=== PATIENT | female | born 1985 | race Caucasian/White ===

== ENCOUNTER 2022-04-26 10:05 | Day surgery (SDC) | payer OTHER, SELFPAY ==
[2022-04-19 20:35] VITALS: BMI 20.2
--- NOTE | 2022-04-25 10:29 | P.CONAN_ITS ---
Documented by User: Peace Roberts NP 04/25/22 10:30 HPI - Anesthesia Eval Consult details Narrative: 36yo F for Left Eye Muscle Inferior oblique PCP cleared [facility] Past Medical History Medical History Asthma Back pain delivery delivered Surgical History Surgical History (Updated 04/26/22 @ 14:23 by Reanna Tellez MD) H/O section No pertinent past surgical history Social History Social History Patient Tobacco Use Status: Never used Tobacco Use of substances other than those prescribed or required for medical reasons: No Are you DNR?: No Advance Directives: No Advance Directives Information Provided: Yes Advance Directives on File: No Recently lost weight without trying: No Nutrition Risks: No Nutritional Risk Patient : No Meds Allergies Allergy/AdvReac Type Severity Reaction Status Date / Time ciprofloxacin Allergy Muscle Pain Verified 04/25/22 09:33 minocycline Allergy Unknown Verified 04/25/22 09:33 Home Medications Medication Instructions Recorded Confirmed Last Taken Type albuterol sulfate 90 mcg/actuation 2 puff inhalation QID PRN 04/19/22 04/26/22 04/26/22 History aerosol inhaler Shortness Of Breath Or Wheezing fluticasone propionate 50 1 spray intranasal BID 04/19/22 04/19/22 Unknown History mcg/actuation nasal spray,suspension norgestimate 0.25 mg-ethinyl 1 tab PO DAILY 04/19/22 04/19/22 Unknown History estradiol 35 mcg tablet (Sprintec (28)) Exam Exam Date and Time: April 25, 2022 1029 Height,Weight and Vital Signs: Height 5 ft 3 in Weight 51.71 kg Assessment and Plan Assessment Anesthesia Assessment: Chart Reviewed Documented by User: Reanna Tellez MD 04/26/22 14:25 PENDING SALE TO [facility] Active Problems Active Problems: Raynaud's Asthma- uses inhaler 2x/day. Used this am Past Medical History Medical History Asthma Back pain delivery delivered Family History Family history of problems with anesthesia: No Surgical History Surgical History (Updated 04/26/22 @ 14:23 by Reanna Tellez MD) H/O section No pertinent past surgical history History of Problems with Anesthesia: No Social History Social History Patient Tobacco Use Status: Never used Tobacco Use of substances other than those prescribed or required for medical reasons: No Are you DNR?: No Advance Directives: No Advance Directives Information Provided: Yes Advance Directives on File: No Recently lost weight without trying: No Nutrition Risks: No Nutritional Risk Patient : No Meds Allergies Allergy/AdvReac Type Severity Reaction Status Date / Time ciprofloxacin Allergy Muscle Pain Verified 04/25/22 09:33 minocycline Allergy Unknown Verified 04/25/22 09:33 Home Medications Medication Instructions Recorded Confirmed Last Taken Type albuterol sulfate 90 mcg/actuation 2 puff inhalation QID PRN 04/19/22 04/26/22 04/26/22 History aerosol inhaler Shortness Of Breath Or Wheezing fluticasone propionate 50 1 spray intranasal BID 04/19/22 04/19/22 Unknown History mcg/actuation nasal spray,suspension norgestimate 0.25 mg-ethinyl 1 tab PO DAILY 04/19/22 04/19/22 Unknown History estradiol 35 mcg tablet (Sprintec (28)) Exam Height,Weight and Vital Signs: Height 5 ft 3 in Weight 51.71 kg Vital Signs Temp Pulse Resp BP Pulse Ox O2 Del Method 04/26/22 11:19 97.9 F 79 19 116/77 96 Room Air Pertinent Lab Results Pertinent Lab Results: Lab Results 04/26/22 Range/Units 10:55 Urine Test NEGATIVE (NEGATIVE) Airway Mallampati Class: II (Small mouth opening) TM Dist: >3cm Neck ROM: Full Loose/Missing/Broken Teeth: Yes (Missing top left) Heart: RRR Lungs: CTAB Assessment and Plan Assessment Anesthesia Assessment: Anesthesia Plan Discussed Final Anesthetic Review Family History of Problems with Anesthesia: No History of Problems with Anesthesia: No NPO: Yes ASA Class: II Final Preanesthetic Review: No Changes in Pt Med Stat, Meds/Allgs Chart Reviewed, Consent Obtained/Reviewed and Anes Risks/Benef Reviewed Patient Risk: Low Procedure Risk: Low Anesthetic Plan Anesthetic Plan: GA Disposition: Standard PACU
[2022-04-26] VITALS (7 sets, daily range): BP systolic 116–145; BP diastolic 77–91; PULSE 59–79; RESP 10–19; TEMP 36.1–36.6; O2SAT 96–100; BMI 19.8
[2022-04-26 11:22] LABS: UPreg QC Valid YES; Urine Pregnancy NEGATIVE (NEGATIVE)
[2022-04-26] MEDS: Lactated Ringers 1,000 ML 100 ML IVCONT (12:06)
[2022-04-26] MEDS: Acetaminophen 325 MG TABLET 650 MG PO (13:23)
--- NOTE | 2022-04-26 14:50 | P.OPHTHAL_ITS ---
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 Procedure recession of left inferior oblique muscle. Surgeon Dr. Maria. Anesthesia general. Complications none. The patient was brought to the op erating room placed under general anesthesia. The patient's left eye was prepped and draped in the usual sterile ophthalmic fashion. A lid speculum was placed in the eye and incisions admitted made down to bare sclera in the inferotemporal fornix. The inferior and lateral rectus muscles were placed on a large muscle hooks and the inferior oblique carefully identified and grasped with 2 small tenotomy hooks. The muscle was then transferred to the large muscle hooks and grasped near its insertion with a curved mosquito. The muscle was then did disinserted from the globe and reattached to a position 2 mm temporal and 2 mm posterior to the temporal insertion of the inferior rectus muscle. Conjunctiva was closed with interrupted Vicryl sutures. The patient was then awoken from general anesthesia and discharged to postoperative recovery in good condition.
[2022-04-26] MEDS: Tetracaine HCl/PF 0.5% Oph Sol 4 ML DROPS 1 DROP EYE-LEFT (15:18)
== END 2022-04-26 15:58 | disposition home or self-care (01) ==
PROVIDERS: Nurse Practitioner; Visit Provider Ophthalmology
PROC: (CPT 67314; principal; 2022-04-26 12:10)
DX: H50.22 Vertical strabismus, left eye (principal); H49.12 Fourth [trochlear] nerve palsy, left eye; H53.2 Diplopia; H51.8 Other specified disorders of binocular movement; E03.8 Other specified hypothyroidism; I73.00 Raynaud's syndrome without gangrene; J45.20 Mild intermittent asthma, uncomplicated; Z79.51 Long term (current) use of inhaled steroids; Z79.899 Other long term (current) drug therapy
CPT/HCPCS: 67314; 81025; J1100; J1885; J2250; J2405

== ENCOUNTER 2024-08-11 12:45 | Outpatient (AMB) | payer MEDICAID, SELFPAY ==
--- NOTE | 2024-08-11 12:57 | A.OFFVIS_ITS ---
Vital Signs 08/11/24 13:02 Height 5 ft 3 in Weight 122 lb BMI 21.6 BP 100/60 Blood Pressure Location Lt brachial Position Sitting Pulse 84 Pulse Source Pulse Oximeter Pulse Oximetry (%) 93 Oxygen Delivery Method Room Air Intake Visit Reasons: asthma Cath Lab Radiology Technician Required: No Allergies ciprofloxacin Allergy (Verified 08/11/24 12:59) Muscle Pain minocycline Allergy (Verified 08/11/24 12:59) Unknown HPI Comments Details: The patient is here for pulmonary evaluation. The patient is a 38 year woman with a known history of lifelong asthma and more recent diagnosis of local dystrophy. The patient can walk with a walker and does have a transport chair. She did go to [place] in her condition has not indeed affected her respiratory muscles her her understanding. The patient did have bringing studies back in 2021 which we personally reviewed. She appears to have a mild obstruction and some significant small airways disease as well as air trapping this is consistent with her lifelong history obstructive airway disease. The patient also had a CT scan of the chest back at that time in 2021 demonstrating airspace disease where she was probably going through a lower respiratory infection. She has not had any recent imaging studies. Today she is coughing more she is congested and she does some hoarseness. She has been under the weather now for the last few days and she does have a sick contact us her son is 2 years old and goes to daycare. So will go ahead and treat her for an asthma exacerbation in addition to bronchitis. Once she improves will go ahead and repeat her pulmonary function studies and repeat an x-ray to address her underlying status. From a respiratory status she has been using Symbicort with good effect. Will go ahead and maximize her respiratory therapy by adding Spiriva to her regimen. She also will need a nebulizer. Will provide her with an Acapella valve is specially to help with her chronic bronchitis. [facility] Medical History (Updated 08/11/24 @ 19:25 by Aneesh Cooper MD) Leukodystrophy Bronchitis delivery delivered Back pain Asthma Surgical History (Updated 04/26/22 @ 14:23 by Reanna Tellez MD) H/O section No pertinent past surgical history Social History Comment: medicated with tetracaine drops to left eye Patient Tobacco Use Status: Never used Tobacco Review of Systems Const Denies fatigue ENT Reports hoarseness Card Denies chest pain Resp Reports chest congestion, Reports cough and Reports wheezing GI Reports no additional complaints Musc Reports as per HPI, Reports abnormal gait and Reports muscle weakness Skin/Breast Denies rash Neuro Reports abnormal gait Endo Denies fatigue Aller/Immun Reports wheezing Physical Exam Vital Signs: Last Vital Signs Pulse 84 08/11/24 13:02 BP 100/60 08/11/24 13:02 Pulse Ox 93 08/11/24 13:02 Oxygen Delivery Method Room Air 08/11/24 13:02 BMI result Body Mass Index 21.6 Const General: comfortable HEENT Head: Yes normocephalic Neck Neck: Yes supple Chest Chest palpation & inspection: normal inspection of the chest Resp Effort & Inspection: normal respiratory effort and prolonged expiratory phase Auscultation: rhonchi, wheezes and diminished lung sounds Cardio Heart sounds: S1 normal heart sound present and S2 normal heart sound present GI Palpation (GI): Soft to palpation Skin General skin exam: no rashes or lesions noted Extrem General: Yes no clubbing, cyanosis or edema Office Procedures AMB Nebulizer Teach Details: Radha and her mother were educated on the proper use and cleaning of the nebulizer machine and medicine that she will be using. Radha states she understands and does not have any questions at this time. [id number] - Nebulizer Teach Assessment & Plan Assessment & Plan (1) Asthma: Code(s): J45.909 - Unspecified asthma, uncomplicated Category: Medical Qualifiers: Asthma severity: moderate Asthma persistence: persistent Asthma complication type: with acute exacerbation Qualified Code(s): J45.41 - Moderate persistent asthma with (acute) exacerbation (2) Bronchitis: Code(s): J40 - Bronchitis, not specified as acute or chronic Category: Medical (3) Leukodystrophy: Code(s): G31.80 - Leukodystrophy, unspecified Category: Medical Plan Needs nebulizer needs acapella for CPT continue Symbicort start Spiriva ALISIA as needed Zpack Medrol if no better Orders: Orders AMB Nebulizer Teach Today J45.909 - Unspecified asthma, uncomplicated Medications: New methylprednisolone (Medrol (Michael)) PO PER PKG DIR 21 ea 0RF 6 days albuterol sulfate 2.5 mg (3 mL) inhalation Q6H PRN 180 mL 11RF shortness of breath or wheezing 30 days tiotropium bromide 2.5 mcg/actuation (Spiriva Respimat) 2 puffs inhalation DAILY 1 ea 11RF 30 days azithromycin 500 mg PO DAILY 5 tabs 0RF 5 days Coding Level of Care Code New Pt Level 4 (55914) Diagnoses Moderate persistent asthma with acute exacerbation J45.41 Asthma severity: moderate Asthma persistence: persistent Asthma complication type: with acute exacerbation Bronchitis J40 Leukodystrophy G31.80 CPT Codes Nebulizer Teach - Nebulizer Teach: [id number] - Nebulizer Teach ([id number]) Time Spent (min) 40
[2024-08-11 13:02] VITALS: BP 100/60; PULSE 84; O2SAT 93; BMI 21.6
== END 2024-08-11 13:38 | disposition home or self-care (01) ==
LOC: HO.HPS 12:45
PROVIDERS: PCP Internal Medicine; Referring Provider Allergy & Immunology; Visit Provider Hospitalist
DX: J45.41 Moderate persistent asthma with (acute) exacerbation (principal); G31.80 Leukodystrophy, unspecified
CPT/HCPCS: 99204

== ENCOUNTER → 2024-08-11 12:45 | Outpatient (BNVA) | payer MEDICAID, SELFPAY | PROVIDERS: PCP Internal Medicine; Referring Provider Allergy & Immunology; Visit Provider Hospitalist | DX: J45.41 Moderate persistent asthma with (acute) exacerbation (principal); J40 Bronchitis, not specified as acute or chronic; G31.80 Leukodystrophy, unspecified | CPT/HCPCS: 94664; 99202 ==

== ENCOUNTER 2024-09-25 12:50 | Outpatient (REF) | payer MEDICAID, SELFPAY ==
[2024-09-25 10:45] VITALS: PULSE 82; O2SAT 98
--- NOTE | 2024-09-25 13:05 | PFT_ITS ---
Indication asthma Spirometry [FEV1 to FVC 73%; FEV1 1.59 L; FVC 2.19 L. No significant response to bronchodilators noted. Maximum voluntary ventilation 48% predicted] Lung Volumes [Total lung capacity 73% predicted; residual volume 111% predicted; expiratory reserve volume 51% predicted] Diffusion Capacity [DLCO 54% predicted] Comparisons [none] Interpretation [No definitive obstructive ventilatory defects. No significant response to bronchodilators noted. Although the patient does have a slight concavity to the expiratory limb of the flow volume loop suggesting an obstructive physiology. In addition to that the patient does have significant small airways disease which is consistent with a history of asthma. The patient also has a mild restrictive ventilatory defect. Consider underlying parenchymal lung conditions in or neuromuscular disease specially with the low MVV. Patient does have a moderate diffusion impairment although does correct to normal when corrected for the alveolar volume. Clinical correlation warranted.] MTDD
== END 2024-09-25 12:51 | disposition home or self-care (01) ==
LOC: HO.RESP 12:50
PROVIDERS: Visit Provider Hospitalist
DX: J45.41 Moderate persistent asthma with (acute) exacerbation (principal)
CPT/HCPCS: 94010; 94640; 94727; 94729

== ENCOUNTER → 2024-09-25 13:05 | Outpatient (BNV) | payer MEDICAID, SELFPAY | PROVIDERS: Visit Provider Hospitalist | DX: J45.41 Moderate persistent asthma with (acute) exacerbation (principal) | CPT/HCPCS: 94060; 94727; 94729 ==